=== PATIENT | female | born 1960 | race Caucasian/White ===

== ENCOUNTER 2017-09-10 08:43 | Observation (INO) | payer OTHER ==
[~2017-09-10] VITALS: Ht 172.7 cm; Wt 87.0 kg
[2017-09-10 08:48] VITALS: Ht 172.7 cm; Wt 87.0 kg
[2017-09-10 09:43] LABS: CALCIUM 8.6 mg/dL (8.5-10.1); CARBON DIOXIDE 28.8 mmol/L (21-32); CHLORIDE SERUM 93 mmol/L (98-107); CREATININE SERUM 0.7 mg/dL (0.6-1.0); GFR1 > 60 mL/min; GLUCOSE SERUM 105 mg/dL (74-106); POTASSIUM SERUM 3.2 mmol/L (3.5-5.1); SODIUM SERUM 129 mmol/L (136-145)
[2017-09-10 09:48] LABS: ALBUMIN 3.6 g/dL (3.4-5.0); ALKALINE PHOSPHATASE 59 U/L (46-116); ALT/SGPT 17 U/L (14-59); AST/SGOT 15 U/L (15-37); BILIRUBIN TOTAL 0.3 mg/dL (0.20-1.00); LIPASE 78 IU/L (73-393); TOTAL PROTEIN, SERUM 6.3 g/dL (6.4-8.2)
[2017-09-10 09:54] LABS: BASOPHIL % 0.4 % (0-2); PLATELET COUNT 159 x10^3mcL (130-400); RED CELL DISTRIBUTION WIDTH 12.4 % (11.5-14.5)
[2017-09-10] MEDS ORDERED: ZYRTEC10 MG PO (13:21)
[2017-09-10] MEDS ORDERED: XAN1 PO (13:21)
[2017-09-10 14:35] VITALS: BP 103/61
[2017-09-10 14:55] LABS: MAGNESIUM 1.9 mg/dL (1.8-2.4); PHOSPHOROUS 3.8 mg/dL (2.5-4.9)
[2017-09-10 14:57] LABS: T3 TOTAL 1.18 ng/mL
[2017-09-10 14:58] LABS: CHOLESTEROL/HDL RATIO 4.9
[2017-09-10 15:02] LABS: FREE T4 0.97 ng/dL (0.76-1.46); FREE THYROXINE INDEX 2.4 ug/dL (1.4-4.5); T4(THYROXINE) 7.6 ug/dL (4.7-13.3)
[2017-09-10 17:44] VITALS: BP 128/74
[2017-09-10 17:47] LABS: microscopic required? NO
[2017-09-10 17:56] LABS: UA SPECIFIC GRAVITY <=1.005 (1.005-1.035); urine erythrocyte NEGATIVE (NEGATIVE)
[2017-09-10 18:04] LABS: AMPHETAMINE QUAL UR NONE DETECTED (NEG <=1000)
[2017-09-10 20:44] VITALS: BP 135/81
[2017-09-11 06:21] VITALS: BP 100/49
[2017-09-11 06:49] LABS: BASOPHIL % 0.4 % (0-2); PLATELET COUNT 158 x10^3mcL (130-400); RED CELL DISTRIBUTION WIDTH 12.5 % (11.5-14.5)
[2017-09-11 07:03] LABS: CALCIUM 8.4 mg/dL (8.5-10.1); CARBON DIOXIDE 26.4 mmol/L (21-32); CHLORIDE SERUM 108 mmol/L (98-107); CREATININE SERUM 0.8 mg/dL (0.6-1.0); GFR1 > 60 mL/min; GLUCOSE SERUM 87 mg/dL (74-106); POTASSIUM SERUM 4.3 mmol/L (3.5-5.1); SODIUM SERUM 140 mmol/L (136-145)
[2017-09-11 09:35] VITALS: BP 107/63
[2017-09-11 12:45] VITALS: BP 103/64
[2017-09-11] MEDS ORDERED: SERTRALINE50 M1 PO (15:16)
[2017-09-11 15:42] VITALS: BP 103/64
[2017-09-11] MEDS ORDERED: ZOLOFT100 MG PO (16:20)
== END 2017-09-11 16:28 | disposition home or self-care (01) | DRG 880 ==
LOC: ED 08:43 → DU 13:22 → MU 13:22 → DU 13:22 → MU 14:27 → DU 14:38 → MU 09-11 09:10
PROVIDERS: Emergency Medicine; Family Medicine
DX: F41.0 Panic disorder [episodic paroxysmal anxiety] (principal); E87.1 Hypo-osmolality and hyponatremia; R73.03 Prediabetes; E87.6 Hypokalemia; F12.10 Cannabis abuse, uncomplicated; M19.90 Unspecified osteoarthritis, unspecified site; Z85.3 Personal history of malignant neoplasm of breast; Z68.28 Body mass index [BMI] 28.0-28.9, adult
CPT/HCPCS: 83880; 84439; G0378; J2060; J7030; J8597; Q0092

== ENCOUNTER 2018-09-26 04:44 | Emergency (ER) | payer OTHER | END 2018-09-26 06:46 | disposition home or self-care (01) | LOC: ED 04:44 ==